=== PATIENT | male | born 1995 | race Caucasian/White ===

== ENCOUNTER 2018-10-25 00:25 | Day surgery (SDC) | payer BC ==
[~2018-10-25] VITALS: Ht 177.8 cm; Wt 76.7 kg
[2018-10-25] VITALS (7 sets, daily range): BP systolic 117–130; BP diastolic 66–82
[~2018-10-25 00:25] MED LIST: GUAI120L3 PO
[2018-10-25] MEDS ORDERED: ceFAZolin(*) 2GM/D5W 50ML 50 ML IVPB ONE (06:30)
[2018-10-25] MEDS ORDERED: MIDAZOLAM 2 MG/2 ML VIAL IVP PRN (06:30)
[2018-10-25] MEDS ORDERED: NORMOSOL R SOLN(*) 1000 ML BAG 1,000 ML IV PRN (06:30)
[2018-10-25] MEDS ORDERED: LIDOCAINE/SOD BICARB 8.4% SYR ID ONE (06:30)
[2018-10-25] MEDS ORDERED: FAMOTIDINE 20 MG TAB PO ONE (06:30)
--- NOTE | 2018-10-25 06:31 | EKG ---
FACILITY: [facility] - [place] PATIENT NAME: EDWIN PAREDES : [id number] MR: [id number] V: [id number] EXAM DATE: ORDERING PHYSICIAN: JAREK FLOYD TECHNOLOGIST: MONICA Fong Reason : PREOP Blood Pressure : / mmHG Vent. Rate : 065 BPM Atrial Rate : 065 BPM P-R Int : 134 ms QRS Dur : 098 ms QT Int : 392 ms P-R-T Axes : 061 078 070 degrees QTc Int : [address] elevation, consider early repolarization, pericarditis, or injury Abnormal ECG Confirmed by JESSICA MURCIA ([id number]) on 10/25/2018 6:36:26 AM Referred By: Confirmed By:JESSICA MURCIA
[2018-10-25] MEDS ORDERED: BUPIV/EPI 0.25% 1:200,000 50ML INFIL ONE (06:49)
[2018-10-25] MEDS ORDERED: BUPIVACAINE/EPI 0.5% 50ML VIAL INFIL ONE (06:50)
[2018-10-25] MEDS ORDERED: ONDANSETRON 4 MG/2 ML VIAL ONE (06:54)
[2018-10-25] MEDS ORDERED: PROPOFOL EMUL(*) 10MG/ML 20 ML 20 ML ONE (06:54)
[2018-10-25] MEDS ORDERED: DEXAMETHASONE SOD 4 MG/ML VIAL ONE (06:54)
[2018-10-25] MEDS ORDERED: METOCLOPRAMIDE 10 MG/2 ML SDV ONE (06:54)
[2018-10-25] MEDS ORDERED: LIDOCAINE MPF 1% 5 ML VIAL ONE (06:54)
[2018-10-25] MEDS ORDERED: fentaNYL CITR 250 MCG/5 ML AMP ONE (06:56)
[2018-10-25] MEDS ORDERED: SUGAMMADEX SOD 200 MG/2 ML SDV ONE (06:57)
[2018-10-25] MEDS ORDERED: KETOROLAC 30 MG/ML VIAL ONE (09:07)
[2018-10-25] MEDS ORDERED: TRAM-420 PO (09:41)
--- NOTE | 2018-10-25 09:43 | Short(Outpt) Discharge Summary ---
Discharge Summary Reason for Hosp/Final Diag: (1) Left inguinal hernia Hospital Course & Plan: pt presented for robotic left ing hernia repair. he tolerated the procedure well. he will be discharged home when criteria met. Departure Discharge to: Home Discharge Instructions Home Meds Active Scripts Tramadol Hcl (TRAMADOL HCL) 50 Mg Tablet, 50 MG PO Q4H PRN for PAIN, #20 TAB Prov:HUAN MUNSON 10/25/18 Reported Medications Guaifenesin/Codeine Phosphate (Codeine-Guaifen 10-100 mg/5 ml) 120 Ml Liquid, 10 ML PO DAILY 10/21/18 Diet: Regular Activity: No Heavy Lifting Special Instructions: no lifting more than 15 lbs for 3 wks. ok to shower tomorrow. follow up with dr. cindy munson in 2 wks ([phone]). take stool softener while taking pain meds. HUAN MUNSON Oct 25, 2018 09:43
--- NOTE | 2018-10-25 09:45 | Post Operative Progress Note ---
Post Operative Progress Note Date: Oct 25, 2018 Time: 09:44 Surgeon: dr. cindy munson Trackless Trolley Driver: none Anesthesia: gen, local dr. herrera Pre-Op Diagnosis: left ing hernia Post-Op Diagnosis: same Findings: indirect left ing hernia Procedure(s): robotic left ing hernia repair with mesh Complications: none Fluids: iv crystalloid Estimated Blood Loss: HUAN Ramirez Oct 25, 2018 09:45
[2018-10-25] MEDS ORDERED: fentaNYL CITR 100 MCG/2 ML AMP ONE (10:43)
--- NOTE | 2018-10-25 10:49 | OPERATIVE REPORT 1 ---
EVENT DATE: October 25, 2018 SURGEON: Rafa Raines MD ANESTHESIOLOGIST: Alex Kelly MD ANESTHESIA: General, local. METAL CUT OFF SAW OPERATOR: None. PREOPERATIVE DIAGNOSIS Left inguinal hernia, possible bilateral. POSTOPERATIVE DIAGNOSIS Indirect left inguinal hernia. PROCEDURE PERFORMED Robotic left inguinal hernia repair with mesh. FLUIDS IV Crystalloid. ESTIMATED BLOOD LOSS Minimal. SPECIMENS None. COMPLICATIONS None. INDICATIONS This is a 23-year-old male with a small left inguinal hernia that is bothersome to him. He is concerned he may have a right inguinal hernia as well, though this was not palpated in the office. Risk and benefits of the procedure explained and consent was signed. DESCRIPTION OF PROCEDURE The patient was taken to the operating room and placed in the supine position. General anesthesia was administered per the anesthesia team. The patient was prepped and draped in the normal sterile fashion. Local analgesia was injected in the dermis above the umbilicus and a small vertical incision was made. The umbilical stump was grasped and elevated. The Veress needle was inserted. Pneumoperitoneum was achieved. The Veress needle was removed. An 8 mm port was advanced. After injecting local analgesia under direct vision, a left sided 8 mm port and a right sided 8 mm port were placed. I inspected the abdomen and there was no there injury upon entry. The 15 x 10 left sided ProGrip mesh was placed in the abdomen as well as a absorbable V-Loc stitch. The robot was then docked. The peritoneal flap was created with scissors. This was taken down to the level of Jac's ligament and below the level of the iliopubic tract and the hernia defect was reduced. Care was taken to protect the inferior epigastric vessels as well as the cord structures. Hemostasis was assured. The mesh was then made to lie flat and covered the myopectineal orifice. The absorbable V- Loc stitch was then used to close the peritoneal flap and a [id number] 2-0 Vicryl stitch was used to closed a small hole in the peritoneal flap. The robot was undocked. Tap block was placed on the left. Pneumoperitoneum was relieved. The ports were removed. The supraumbilical fascial defect was closed with a 0 Vicryl stitch. Skin incision was closed with 4-0 Monocryl subcuticular stitches. More local analgesia was injected. Appropriate dressings were applied. The patient tolerated the procedure well. There were no complications. MAR[facility] F[facility]DREN[facility]S HOSPITALGregory
[2018-10-25] MEDS ORDERED: traMADol 50 MG TAB PO ONE (11:25)
--- NOTE | 2018-10-25 14:51 | NUR ---
1105- PT. RECEIVED FROM PACU VIA STRETCHER WITH THE SIDERAILS UP. SBAR RECIEVED FROM RABIA APARICIO. PT. INCISIONS THERE ARE THREE ACROSS THE ABDOMEN. SEE ADMISSION ASSESSMENT. 1120- PT. GIVEN APPLESAUCE AND WATER. 1130- PT. GIVEN TRAMADOL FOR PAIN. 1200- I RECHECKED THE INCISION SITES AND THEY ALL STILL LOOK LIKE THEY DID UPON ARRIVAL. 1230- PT. GIVEN APPLESAUCE. 1306- PT. STATES HE WOULD LIKE TO TRY AND GO HOME SO ORTHOSTATICS PREFORMED. PT. DENIED ANY LIGHTHEADEDNESS OR DIZZINESS. 1315- PT. TO THE BATHROOM. 1320- UPON COMING BACK FROM THE RESTROOM PT. STATES THAT HE FEELS REALLY HOT AND IS STARTING TO FEEL A LITTLE NAUSEAS. PT. GIVEN EMESIS BASIN AND COOL WASHCLOTH FOR THE BACK OF HIS NECK. PT. ALSO GIVEN A QUEASE-EASE. PT. LAID BACK DOWN. 1323- RIGHT IV TAKEN OUT AND PRESSURE DRESSING APPLIED. 1330- DISCHARGE INSTRUCTIONS GONE OVER WITH PT. AND GIRLFRIEND. 1350- PT. GIRLFRIEND DECIDED TO GO FILL PRESCRIPTION WHILE HE RESTED. 1400- PT. STATES THAT THE NAUSEA IS PASSING AND JUST WANTS TO REST UNTIL HIS GIRLFRIEND GETS BACK. 1430- PT. RESTING AND STATES THAT HE DOESN'T NEED ANYTHING. 1500- PT. GIRLFRIEND BACK FROM STORE AND NOW PT. STATES THAT HE WOULD LIKE TO GO HOME. 1505- PT. GETTING DRESSED. 1510- PT. LEFT IV TAKEN OUT AND PRESSURE DRESSING APPLIED. 1515- PT. ACCOMPANIED OUT VIA WHEELCHAIR BY CHAO APARICIO AND HIS GIRLFRIEND WITH NO COMPLICATIONS.
== END 2018-10-25 11:05 | disposition home or self-care (01) ==
LOC: OR 00:25
PROVIDERS: ATTEND Surgery
DX: K40.90 Unilateral inguinal hernia, without obstruction or gangrene, not specified as recurrent (principal); R94.31 Abnormal electrocardiogram [ECG] [EKG]
CPT/HCPCS: 49650; 93005; C1781; J1100; J1885; J2001; J2250; J2405; J2704; J2765; J3010; S2900; J0690